=== PATIENT | female | born 1950 | race Caucasian/White ===

== ENCOUNTER → 2021-02-03 | Outpatient (CLI) | payer MEDICARE ==
--- NOTE | 2021-02-03 13:46 | ECHOF ---
Referral Reason:I35.0 Nonrheumatic aortic (valve) stenosis MEASUREMENTS -------- HEIGHT: 165.1 cm WEIGHT: 68.5 kg BP: IVSd: 1.3 cm (0.6 - 1.1) LVIDd: 3.6 cm (3.9 - 5.3) LVPWd: 1.1 cm (0.6 - 1.1) EDV(Teich): 56 ml IVSs: 1.6 cm LVIDs: 2.5 cm LVPWs: 1.4 cm %IVS Thck: 22 % ESV(Teich): 22 ml EF(Teich): 60 % %FS: 31 % SV(Teich): 34 ml Ao Diam: 3.0 cm (2.0 - 3.7) AV Cusp: 1.1 cm (1.5 - 2.6) EPSS: 0.5 cm MV E Dusty: 0.42 m/s MV DecT: 337 ms MV Dec Bullitt: 1.3 m/s MV A Dusty: 0.73 m/s MV E/A Ratio: 0.57 MV PHT: 98 ms MV Vmax: 1.62 m/s MV Vmean: 0.78 m/s MV maxP.52 mmHg MV meanP.91 mmHg MV VTI: 26.4 cm LVOT Vmax: 1.24 m/s LVOT maxP.18 mmHg LVOT Vmax: 1.27 m/s LVOT Vmean: 0.97 m/s LVOT maxP.43 mmHg LVOT meanP.97 mmHg LVOT Env.Ti: 217 ms LVOT VTI: 21.0 cm AV Vmax: 2.14 m/s AV maxP.26 mmHg AV Vmax: 2.22 m/s AV Vmean: 1.40 m/s AV maxP.90 mmHg AV meanP.02 mmHg AV Env.Ti: 235 ms AV VTI: 32.9 cm TR Vmax: 2.56 m/s TR maxP.30 mmHg RAP: 5.00 mmHg RVSP: 31.30 mmHg MV EF SLOPE: 47.68 mm/s (70 - 150) MV EXCURSION: 10.76 mm (> 18.000) FINDINGS -------- Sinus rhythm. This was a technically good study. The left ventricular size is normal. There is mild concentric left ventricular hypertrophy. Overa ll left ventricular systolic function is low-normal with, an EF between 50 - 55 %. The right ventricle is normal in size. The left atrial size is normal. The right atrial size is normal. There is mild aortic stenosis present. Peak/mean gradient across the Aortic Valve is 20.90mmHg / 9. 02mmHg. The mitral valve leaflets are mildly thickened. Mild mitral annular calcification present. Mild m itral regurgitation is present. The peak and mean MV gradients are 10.52mmHg 2.91mmHg as measured by doppler. Mild tricuspid regurgitation present. The right ventricular systolic pressure, as measured by Doppl er, is 31.30mmHg. There is no pulmonic regurgitation present. The aortic root size is normal. There is no pericardial effusion. CONCLUSIONS -------- 1. The left ventricular size is normal. 2. There is mild concentric left ventricular hypertrophy. 3. Overall left ventricular systolic function is low-normal with, an EF between 50 - 55 %. 4. The right ventricle is normal in size. 5. The left atrial size is normal. 6. The right atrial size is normal. 7. There is mild aortic stenosis present. 8. Peak/mean gradient across the Aortic Valve is 20.90mmHg / 9.02mmHg. 9. The mitral valve leaflets are mildly thickened. 10. Mild mitral annular calcification present. 11. The peak and mean MV gradients are 10.52mmHg 2.91mmHg as measured by doppler. 12. Mild tricuspid regurgitation present. 13. The right ventricular systolic pressure, as measured by Doppler, is 31.30mmHg. 14. There is no pulmonic regurgitation present. 15. The aortic root size is normal. 16. There is no pericardial effusion. MANAGER ART: Kiesha Pineda RDCS
== END | disposition home or self-care (01) ==
LOC: RADECHMAIN 11:57
PROVIDERS: ATTEND Family Medicine
DX: I35.0 Nonrheumatic aortic (valve) stenosis (principal); I70.90 Unspecified atherosclerosis; I07.1 Rheumatic tricuspid insufficiency
CPT/HCPCS: 93306